=== PATIENT | female | born 1955 | race Caucasian/White ===

== ENCOUNTER 2017-10-01 | Inpatient (IN) ==
[2017-10-01] MEDS ORDERED: SALINE FLUSH 10ml SYRINGE IVF PRN (00:13)
--- NOTE | 2017-10-01 00:29 | Emergency Department Report ---
Asthma HPI - General Chief Complaint: Chest Pain Stated Complaint: chest pain, soa,dizziness Time Seen by Provider: 10/01/17 00:01 Source: patient Mode of arrival: ambulatory Limitations: no limitations - History of Present Illness HPI Narrative: Patient describes worsening exertional dyspnea for the past several months to one year. She was seen yesterday at her primary care's office, had a normal EKG , and was scheduled for a follow-up visit with cardiology next week. Patient was instructed that she had any significant worsening she should go to the ER. Tonight the patient believes she had worsening, but cannot put into words. At rest she has no symptoms, currently the patient states that she has only a mild ache in her right shoulder, has no chest pain, difficulty breathing, dyspnea, chest pressure, nausea, chills, shakes, or fevers. Patient has a history of multiple pulmonary emboli in the past, and has been well-controlled on Coumadin for the past 15 years. Last INR was 2.3, checked 2 days ago. - Related Data Home Medications Medication Instructions Recorded Confirmed Warfarin Sodium 5 mg PO DAILY #0 05/07/09 10/01/17 Omeprazole (Prilosec) 20 mg PO DAILY #0 05/08/09 10/01/17 Simvastatin [Zocor] 10 mg PO HS #0 05/08/09 10/01/17 clonazePAM [Clonazepam] 0.5 mg PO HS #0 05/08/09 10/01/17 Metformin [Glucophage] 500 mg PO BIDWM 10/01/17 10/01/17 Nortriptyline HCl 100 mg PO HS 10/01/17 10/01/17 Quetiapine Fumarate 300 mg PO HS 10/01/17 10/01/17 Allergies Allergy/AdvReac Type Severity Reaction Status Date / Time lidocaine HCl Allergy Severe SOA/ FACE Uncoded 10/01/17 01:08 NUMBNESS hydrocodone bit AdvReac Mild N/V Uncoded 10/01/17 01:08 Review of Systems All systems: reviewed and negative except as stated PFSH Patient Stated Medical History Other HEENT Yes: GLASSES Asthma Yes Pulmonary Embolism Yes Diabetes Mellitus Type 2 Yes Other GI Yes: CONSTIPATION, HEMORRHOIDS Depression Yes Pulmonary embolism Elevated cholesterol Type 2 diabetes, oral controlled - Social History Smoking status: Never smoker Substance use type: does not use Alcohol intake frequency: does not drink Physical Exam - Limitations Limitations: no limitations - General General appearance: alert, other (vital signs are all normal and stable) - Normal Exams: Head:: Normocephalic without trauma Eyes:: Pupils are PERRLA w/ EOMI, No scleral icterus, irritation, or foreign bodies noted ENMT:: No facial trauma, nasal exudates, pharyngeal erythema, or exudates are noted Neck:: Full range of motion, without adenopathy, JVD, bruits or thyromegaly Chest/Respirations:: Clear all robertson, with good airflow, and symmetry bilaterally Cardiovascular:: Regular rate and rhythm, without murmur or gallop, Pulses 2+ all extremities, capillary refill, <2 seconds all extremities Abdomen:: Bowel sounds positive, soft, non-tender, non-distended, no hepatosplenomegaly, masses or bruits noted Lymphatic:: No lymphadenopathy, or lymphedema noted Musculoskeletal:: No tenderness, or deformity noted, good range of motion, all extremities Integumentary:: No rashes, hives, or bruising noted, hair and nails, without abnormality Neurological:: Patient is alert, and oriented, cranial nerves, motor/sensory/ cerebellar, exams w/o gross deficits, to observation Psychiatric:: Patient exhibits, appropriate attention, emotion and affect Course Vital Signs Temperature 98.3 F 10/01/17 00:10 Pulse Rate 97 10/01/17 00:10 Respiratory Rate 18 10/01/17 00:10 Blood Pressure 136/67 10/01/17 00:10 Pulse Oximetry 98 10/01/17 00:10 Temperature 98.3 F 10/01/17 00:10 Pulse Rate 97 10/01/17 00:10 Respiratory Rate 18 10/01/17 00:10 Blood Pressure 136/67 10/01/17 00:10 Pulse Oximetry 98 10/01/17 00:10 Dyspnea - MDM Narrative Medical decision making narrative: EKG shows normal sinus rhythm without ischemia, ectopy, or infarction CMP is normal CBC shows profound anemia with hemoglobin of 4.0, Hemoccult - negative Patient is being admitted by Dr. Sterling Larios, will be kept nothing by mouth for possible colonoscopy in the morning, and then tonight - Lab Data Result diagrams: 10/01/17 00:21 10/01/17 00:21 Lab Results 10/01/17 10/01/17 Range/Units 00:21 00:21 WBC 10.0 (4.5-11.0) T/MM3 RBC 2.14 L (4.00-5.20) M/MM3 Hgb 4.0 L* (12-16) GM/DL Hct 15.4 L* (36-46) % MCV 72.0 L (80-100) UM3 MCH 18.7 L (26-34) UUG MCHC 26.0 L (31-37) GM/DL RDW Std Deviation 49.8 (36.9-50.2) FL Plt Count 299 (130-400) T/MM3 MPV 9.3 L (9.4-12.4) UM3 Immature Gran % (Auto) Not performed Neut % (Auto) Not performed Lymph % (Auto) Not performed Braxton % (Auto) Not performed Eos % (Auto) Not performed Baso % (Auto) Not performed Neut # (Auto) Not performed Lymph # (Auto) Not performed Braxton # (Auto) Not performed Eos # (Auto) Not performed Baso # (Auto) Not performed Abs Immat Gran (auto) Not performed Neutrophils % (Manual) 61.0 (33-66) % Lymphocytes % (Manual) 35.0 (23-45) % Monocytes % (Manual) 2.0 (0-9.0) % Eosinophils % (Manual) 1.0 (0-4) % Basophils % (Manual) 1.0 (0-2) % Neutrophils # (Manual) 6.1 (1.8-7.7) T/MM3 Lymphocytes # (Manual) 3.5 (1-4.8) T/MM3 Monocytes # (Manual) 0.2 (0-0.8) T/MM3 Eosinophils # (Manual) 0.1 (0-0.5) T/MM3 Basophils # (Manual) 0.1 (0-0.2) T/MM3 Nucleated RBCs 1 Poikilocytosis 2+ Anisocytosis 2+ Schistocytes 1+ RBC Morph Comment Abnormal Turbidity < 20 (0-20) Sodium 143 (134-144) MEQ/L Potassium 4.2 (3.6-5) MEQ/L Chloride 106 (98-107) MEQ/L Carbon Dioxide 24 (22-30) MEQ/L Anion Gap 13 (5-15) MEQ/L BUN 15.0 (7-17) MG/DL Creatinine 0.9 (0.7-1.2) mg/dL GFR Calculation 64 BUN/Creatinine Ratio 17 (6-26) RATIO Glucose 193 H (65-110) MG/DL Calculated Osmolality 281 H (261-280) MOSM/KG Calcium 8.9 (8.4-10.2) MG/DL Total Bilirubin < 0.10 L (0.20-1.30) MG/DL Conjugated Bilirubin 0.00 (0.00-0.30) mg/dL Unconjugated Bilirubin 0.00 (0.00-1.1) mg/dL Icterus Index < 2 (0-7) AST 20 (14-36) U/L ALT 22 (1-35) U/L Alkaline Phosphatase 72 (38-126) U/L Troponin I < 0.012 (0-0.12) ng/ml NT-Pro-B Natriuret Pep 80.2 (0-175) pg/mL Total Protein 7.1 (6.3-8.2) g/dL Albumin 4.0 (3.5-5.0) g/dL Globulin 3.1 (2.4-3.6) G/DL Albumin/Globulin Ratio 1.3 (1.1-2.2) RATIO Specimen Hemolysis < 15 (0-25) Disposition Clinical Impression: Anemia Qualifiers: Anemia type: unspecified type Qualified Code(s): D64.9 - Anemia, unspecified [place]: [place] [facility] [place] Condition: Stable Prescriptions: No Action Warfarin Sodium 5 mg PO DAILY #0 Simvastatin [Zocor] 10 mg PO HS #0 Metformin [Glucophage] 500 mg PO BIDWM Quetiapine Fumarate 300 mg PO HS Omeprazole (Prilosec) 20 mg PO DAILY #0 clonazePAM [Clonazepam] 0.5 mg PO HS #0 Nortriptyline HCl 100 mg PO HS Referrals: Wen Cabello MD [Family Provider] - - Seen By: physician
--- NOTE | 2017-10-01 02:48 | History & Physical Report ---
History of Present Illness Date: 10/01/17 Chief complaint: Exertional Dyspnea HPI: This is a 61 y/o w/ h/o PE on warfarin, Type 2 DM, HLD and other medical issues who presents to ED at [facility] [place] w/ chief concern of progressively worsening exertional dyspnea and dizziness(lightheadedness) w/ change in positions which started several months ago. She was seen recently by her PCP and had EKG which was "normal" and was set up to have an echocardiogram done. Patient states in last 24-48 hours exertional dyspnea has seemed worse so she came to the ER. Patient denies cp though does state that rarely she would feel some chest heaviness w/ exertion, denies SOA at rest, has some fatigue, bertha exertional, but denies f/c/s, n/v/d, melena, BRBPR and hematochezia and denies change in bladder function and denies focal neuro deficits. Patient in ER had unremarkable CXR and EKG and VSS however noted to have a Hgb of 4 but heme neg stool. Patient typed and crossed and will be admitted to the Hospitalist service for further evaluation and management. Review of Systems All systems PM: 10-point ROS was reviewed, no additional remarkable complaints except Past Medical History Patient Stated Medical History Other HEENT Yes: GLASSES Asthma Yes Pulmonary Embolism Yes Diabetes Mellitus Type 2 Yes Other GI Yes: CONSTIPATION, HEMORRHOIDS Depression Yes Diet controlled HLD Family History Updates: No specific family history updates - Social History Smoking status: Never smoker Medications Home Medications Medication Instructions Recorded Confirmed Type Warfarin Sodium 5 mg PO DAILY #0 05/07/09 10/01/17 History Omeprazole (Prilosec) 20 mg PO DAILY #0 05/08/09 10/01/17 History Simvastatin [Zocor] 10 mg PO HS #0 05/08/09 10/01/17 History clonazePAM [Clonazepam] 0.5 mg PO HS #0 05/08/09 10/01/17 History Metformin [Glucophage] 500 mg PO BIDWM 10/01/17 10/01/17 History Nortriptyline HCl 100 mg PO HS 10/01/17 10/01/17 History Quetiapine Fumarate 300 mg PO HS 10/01/17 10/01/17 History Allergies Allergy/AdvReac Type Severity Reaction Status Date / Time lidocaine HCl Allergy Severe SOA/ FACE Uncoded 10/01/17 01:08 NUMBNESS hydrocodone bit AdvReac Mild N/V Uncoded 10/01/17 01:08 Exam Vital Signs: Temperature 98.3 F 10/01/17 00:10 Pulse Rate 97 10/01/17 00:10 Respiratory Rate 18 10/01/17 00:10 Blood Pressure 136/67 10/01/17 00:10 Pulse Oximetry 98 10/01/17 00:10 Telemetry Rhythm: Sinus Rhythm Height/Weight/BMI: Height 1.6 m Weight 84.368 kg - Constitutional Present: no acute distress, well nourished, well developed - Routine HEENT Exam Head: Present: normocephalic, atraumatic Eye: Present: EOMI, PERRL ENT: Present: mucous membranes moist - Routine Neck Exam Present: supple, full ROM. Absent: JVD - Routine Respiratory Exam Present: CTA bilaterally. Absent: accessory muscle use, respiratory distress - Routine Cardiovascular Exam Present: RRR, S1, S2 - Routine Abdominal Exam Present: soft, normoactive bowel sounds, non distended, non tender - Routine Extremities Exam Absent: cyanosis, clubbing, edema - Routine Skin Exam Present: pallor - Routine Neurological Exam Present: alert, oriented X3, CN II-XII intact. Absent: sensory deficit, motor deficit - Routine Psychiatric Exam Present: normal affect, normal thought process, cooperative, good insight, good judgment Results - Labs CBC & Chem 7: 10/01/17 09:37 10/01/17 09:37 Assessment and Plan Assessment and Plan: Assessment: 1) Profound Anemia - likely acute on chronic given patient's months of progressively worsening symptoms 2) Exertional dyspnea, orthostasis (lightheaded w/ change in position - bertha bending over) and fatigue r/t #1 3) H/o PE on warfarin w/ recent INR of 2.3 4) Type 2 DM 5) Diet controlled HLD Plan: Admit to Hospitalist service NPO except sips and ice chips IVFs that of NS at 100 cc/hour PT/INR and CBC at 0800 2 units pRBCs to be transfused Consider consult to Surgery re: w/u of anemia - e.g., EGD/Colonoscopy Hold warfarin for now AC and HS accuchecks SCDs Recheck troponin x one I discussed the plan of care with the patient and her and they verbalized understanding DVT Prophylaxis: SCD's GI Prophylaxis: Protonix Resuscitation Status: Full Code - Physician Narrative Physician: Ivett Morales MD Narrative: Date: 10/01/17 Time: 1300 Dr. Larios's note reviewed. Mrs. Gonzalez interviewed and examined. CC: Fatigue/exertional dyspnea HPI: Mrs. Gonzalez is 61-year-old female on chronic warfarin therapy for past history of recurrent PE. For the past 3 months she's noted increasing exertional dyspnea, dizziness and lightheadedness with position changes, swelling in her feet, and increasing fatigue with minimal activities. She's had an aching sensation in her shoulders bilaterally with activities and pain in the lateral aspect of her left thigh. She has intermittent dyspepsia and reflux occurring primarily when she eats spicy food or late at night. This is treated with when necessary omeprazole which she takes a couple of times a week. She has chronic constipation and often strains to have bowel movements; stools are often dark but never melanotic. She denies change in stool caliber. She recalls one episode when there was a small amount of red blood in the stool. She has had no other recognized bleeding including hemoptysis, hematemesis, or hematuria. She initially attributed fatigue to elevated INRs; she was seen in the office last night and referred for cardiology evaluation. Symptoms were much worse yesterday and she subsequently presented to the emergency room where she was found have a hemoglobin of 4.0 with MCV of 72. She was subsequently hospitalized and received 2 units of blood overnight. Patient reports that she feels significantly improved this morning. Her last colonoscopy was in April 2009 at which time no abnormalities were identified. There is a family history of colon cancer affecting her mother and a brother currently has pancreatic cancer. PH/SH/FH: agree with that recorded above by Dr. Larios. Her only prior surgery was a laparoscopic hysterectomy with BSO and anterior colporrhaphy in 2011. Patient has no history of tobacco, alcohol, or illicit drug use. 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 She is a full code and her as her alternate decision maker. Dr. Cabello is her primary care physician. ROS: 10 point review as described by Dr. Larios although the patient adds that she has tinnitus chronically. EXAM: General-NAD, alert, pleasant; 98.7, 137/67, 78, 98% on room air HEENT-PERRL, EOMI without nystagmus, conjunctiva clear, sclera anicteric, conjugate gaze, facial structures symmetric, oropharynx clear, neck supple and without adenopathy Lungs-respirations nonlabored, good airflow, breath sounds clear Cardiac-regular rhythm, S1-S2 Abd-soft, nontender, without palpable mass, bowel sounds present Ext-trace edema bilateral lower extremities Skin-without generalized rash or wounds Neuro-cranial nerves 3-12 intact, motor tone normal, no tremors present, power within normal limits, sensation intact to light touch 4 extremities Psych-calm, cooperative DATA: Admission labs as above, post transfusion of 2 units hemoglobin 6.9. MCV 72 initially. INR 1.78, liver enzymes unremarkable, troponin <0.0122, proBNP 80.2 Hemoccult negative in the emergency room. Chest x-ray reviewed by myself revealing no acute disease. EKG also reviewed by myself demonstrating sinus rhythm with occasional PACs, no acute ST/T-wave changes, slow R-wave progression with low voltage anterolateral precordial leads A/P: Microcytic anemia Exertional dyspnea Fatigue Dyspepsia Constipation History PE, recurrent Diabetes mellitus-on metformin Hyperlipidemia-on simvastatin Depression/anxiety-on clonazepam, nortriptyline, and Seroquel Given slowly progressive symptoms and extent of anemia in conjunction with microcytic indices this is almost certainly a chronic blood loss anemia with GI source probable location of chronic blood loss. Dr. Nassar consulted for consideration of endoscopic studies. Chronic constipation of concern given family history colon cancer and pancreatic cancer. Hold warfarin in anticipation of EGD/colonoscopy. Discussed with Dr. Nassar, clear liquids initiated as INR precludes EGD today. IV Protonix initiated. Iron studies ordered; patient will require iron replacement therapy which may be most effectively provided IV given chronic constipation already. Posttransfusion hemoglobin 6.9; and encourage the patient to ambulate in the halls to determine symptoms at present. This may be enough blood replacement for symptomatic management short-term pending iron replacement that additional blood will not be necessary. Home medications for hyperlipidemia and depression resumed. Hospital Course Summary Disclaimer: The visit summary below is not to be considered part of the above Progress Note.
[2017-10-01] MEDS ORDERED: NS FLUSH BAG 500ml IV PRN (03:18)
[2017-10-01] MEDS ORDERED: ACETAMINOPHEN 325 MG TABLET PO PRN (03:18)
[2017-10-01 03:38] VITALS: RESP 16
[2017-10-01] MEDS ORDERED: OMEPRAZOLE 20 MG CAPSULE PO SCH (06:30)
--- NOTE | 2017-10-01 07:52 | XRay Report ---
INDICATION: dyspnea PROCEDURE: CHEST 2-VIEWS UPRIGHT (PA & LAT) Encounter: Initial COMPARISON: November 16, 2011 FINDINGS: The lungs are clear without evidence of focal abnormal airspace opacity. There is no pleural effusion or pneumothorax. The heart size, mediastinal contours and pulmonary vascularity are within normal limits. Hiatal hernia. IMPRESSION: No acute cardiopulmonary disease. .
[2017-10-01] MEDS: NS 1,000 ML IV SCH ×2 (10:38→17:01)
[2017-10-01] MEDS ORDERED: INSULIN ASPART 100unit/ml INJECTION SQ PRN (13:19)
[2017-10-01 15:12] VITALS: BP 145/71; PULSE 98; TEMP 98.4; O2SAT 97
--- NOTE | 2017-10-01 17:19 | Discharge Summary ---
Discharge Information Date of admission: 10/01/17 03:01 Anticipated date of discharge: 10/01/17 Attending Physician: Ivett Morales MD Primary care physician: Wen Cabello MD Consults: Consulting Provider: Timo Nassar Reason For Exam: anemia - Discharge Diagnosis (1) Microcytic anemia Status: Acute Microcytic anemia Exertional dyspnea Fatigue Dyspepsia Constipation History PE, recurrent Diabetes mellitus Hyperlipidemia Depression/anxiety - Laboratory Labs: Initial laboratory data revealed hemoglobin of 4.0 with MCV 72.0, platelet count 299,000, white count 10.0. 10/01/17 09:37 10/01/17 09:37 History of Present Illness HPI: Mrs. Gonzalez is 61-year-old female on chronic warfarin therapy for past history of recurrent PE. For the past 3 months she's noted increasing exertional dyspnea , dizziness and lightheadedness with position changes, swelling in her feet, and increasing fatigue with minimal activities. She's had an aching sensation in her shoulders bilaterally with activities and pain in the lateral aspect of her left thigh. She has intermittent dyspepsia and reflux occurring primarily when she eats spicy food or late at night. This is treated with when necessary omeprazole which she takes a couple of times a week. She has chronic constipation and often strains to have bowel movements; stools are often dark but never melanotic. She denies change in stool caliber. She recalls one episode when there was a small amount of red blood in the stool. She has had no other recognized bleeding including hemoptysis, hematemesis, or hematuria. She initially attributed fatigue to elevated INRs; she was seen in the office last night and referred for cardiology evaluation. Symptoms were much worse yesterday and she subsequently presented to the emergency room where she was found have a hemoglobin of 4.0 with MCV of 72. She was subsequently hospitalized and received 2 units of blood overnight. Patient reports that she feels significantly improved this morning. Her last colonoscopy was in April 2009 at which time no abnormalities were identified. There is a family history of colon cancer affecting her mother and a brother currently has pancreatic cancer. Objective Vital signs: Temperature 98.4 F 10/01/17 15:12 Pulse Rate 98 10/01/17 15:12 Respiratory Rate 16 10/01/17 15:12 Blood Pressure 145/71 H 10/01/17 15:12 Pulse Oximetry 97 10/01/17 15:12 Height/Weight/BMI: Height 1.68 m Weight 84.3 kg Body Mass Index 30.0 Hospital Course This is a general summary of the patient's hospital course. For more details refer to the complete medical record. Hospital course: Mrs. Chaudhari presents with slowly progressive symptoms and profound anemia in conjunction with microcytic indices compatible with chronic blood loss anemia with GI blood loss as probable source. Dr. Nassar was consulted for consideration of endoscopic studies. Hold warfarin in anticipation of EGD/ colonoscopy. The patient was on IV Protonix while hospitalized and converted to daily omeprazole at discharge (previously taking when necessary). She was seen by Dr. Nassar but INR of 1.78 preclude doing an EGD on 10/01 and subsequently EGD and colonoscopy have been scheduled for 10/04 as an outpatient. The patient received 2 units of packed red blood cells during the hospitalization with posttransfusion hemoglobin improved to 6.9. She was able to ambulate without difficulty and reports feeling remarkably better hence it was not felt that additional transfusions are needed at this time. Iron studies were ordered but will not be back until 10/04 as well. Patient will require iron replacement therapy which may be most effectively provided IV given chronic constipation. This can be coordinated through the infusion center when data is available. The patient was advised that anemia will worsen and symptoms will return over the next 1-2 months without further therapy. Stable for discharge posttransfusion. Resuscitation Status: Full Code Discharge Plan - Discharge Disposition Discharge Date: 10/01/17 Disposition: Discharged Home, Self-Care *Condition: Stable Reason For Visit (Visit label in EMR): Profound anemia-symptomatic - Discharge Medications *Discharge Medications: New Peg 3350 238 G Bottle [Miralax] 17 gm PO BID #1 bottle Continue Simvastatin [Zocor] 10 mg PO HS #0 Metformin [Glucophage] 500 mg PO BIDWM Quetiapine Fumarate 300 mg PO HS Omeprazole (Prilosec) 20 mg PO DAILY #0 clonazePAM [Clonazepam] 0.5 mg PO HS #0 Nortriptyline HCl 100 mg PO HS Discontinued Warfarin Sodium 5 mg PO DAILY #0 - Discharge Packet/Instructions *Diet: Liquids and as instructed by Dr. Nassar *Activity: As tolerate *Pain Management/Treatment: Tylenol as needed *Wound Care: Not applicable Additional Instructions: -Hold Warfarin until testing completed on Wednesday. - Start taking MiraLAX 17 g (1 scoop) twice a day to minimize constipation. - Bowel prep recommendations for colonoscopy per Dr. Nassar. -Follow up with Dr. Cabello next week regarding need for iron and possibility of outpatient IV iron infusion *Expected Signs/Symptoms: Shortness of breath and fatigue with significant activity. *Notify Physician if: You become aware of any bleeding or if you have chest pain *During Business Hours Contact: Dr. Cabello's office *After Business Hours Contact: Call [facility] at [phone] and ask that the on-call physician be paged *Pending Lab/Results: Follow up w/Provider (iron studies) - Referrals/Follow Up *Referrals/Follow Up: Wen Cabello MD [Family Provider] - 1 Week (October 08 at 10:45 a.m.) Timo Nassar MD [Physician] - (Wednesday for endoscopic studies as discussed ) - Patient Handouts Patient Handouts: Iron Rich Diet (DC), Iron Deficiency Anemia (DC), Blood Transfusion (GEN) - Dismissal Complete Discharge Instructions are:: Complete Physician Narrative - Narrative Attestation Narrative: Date: 10/01/17 Time: 4620
[2017-10-01] MEDS ORDERED: PANTOPRAZOLE 40 MG INJECTION IVP SCH (21:00)
[2017-10-01] MEDS ORDERED: NORTRIPTYLINE 25 MG CAPSULE PO SCH (21:00)
[2017-10-01] MEDS ORDERED: SIMVASTATIN 10 MG TABLET PO SCH (21:00)
[2017-10-01] MEDS ORDERED: QUETIAPINE 100 MG TABLET PO SCH (21:00)
[2017-10-01] MEDS ORDERED: ClonazePAM 0.5 MG TABLET PO SCH (21:00)
--- NOTE | 2017-10-02 10:50 | Consultation ---
DATE OF CONSULTATION 10/01/2017 CONSULTING PHYSICIAN Timo Nassar MD REQUESTING PHYSICIAN Dr. Ivett Morales REASON FOR CONSULTATION Consider endoscopies. IMPRESSION 1. Severe anemia - microcytic, likely iron deficiency (labs pending). 2. Coumadin anticoagulation - currently therapeutic. RECOMMENDATIONS 1. Given the microcytic anemia which is unexplained, I do think that the upper and lower endoscopy should be performed to try to identify any potential GI sources for chronic blood loss. 2. She will need to be off of her Coumadin with an INR of less than 1.5 to have her procedure. 3. I do think it would be reasonable to dismiss her from the hospital and have endoscopies performed on Wednesday as an outpatient procedure once her Coumadin has been held. HISTORY OF PRESENT ILLNESS Cary was having trouble lately and felt like she could not go up or down stairs without developing dyspnea with exertion. She also had dizziness when she was bending over. She had seen Dr. Wen Cabello and had been set up for a cardiology visit next week after her EKG had been of normal. Her symptoms worsened enough that she decided she would go to the emergency department. She was found to have a hemoglobin of 4.0 and had a negative Hemoccult test. The patient was admitted to the hospital and had 2 units of blood transfused overnight. Her hemoglobin is now 6.9 after the transfusion and she feels much better symptomatically. Her anemia was microcytic and she has iron studies pending. The patient denies any significant abdominal pain but does report intermittent reflux. She uses omeprazole on an as-needed basis and typically takes it after eating spicy food or if she eats late at night. She did notice one bowel movement with bright red blood after her stool. This episode of rectal bleeding was within the last two weeks but she has not had any since. She does have chronic constipation that she believes is related to medications. She is on Coumadin for a history of DVT and a recurrent DVT one week after stopping her Coumadin. Her current INR is 1.78. PAST MEDICAL HISTORY 1. 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 2. Type 2 diabetes mellitus on oral agents. 3. Gastroesophageal reflux disease. 4. Constipation. 5. Anxiety. 6. Depression. 7. Hyperlipidemia - diet controlled. 8. Childhood asthma. PAST SURGICAL HISTORY 1. Laparoscopic hysterectomy with bilateral salpingo-oophorectomy and anterior colporrhaphy - 2011. 2. Colonoscopy - 04/2009 - no abnormalities were identified. ALLERGIES Lidocaine, hydrocodone. MEDICATIONS The patient's home medications were reviewed. See the admission medical reconciliation. She does usually take warfarin. SOCIAL HISTORY The patient is and has four children and 17 grandchildren. She is a never-smoker and denies alcohol or illicit drug use. FAMILY HISTORY 1. Mother - colon cancer. 2. Father - heart disease. 3. Brother one - pancreatic cancer. 4. Brother two () - Parkinson's. 5. Sister - Parkinson's. REVIEW OF SYSTEMS Ten-point review of systems was negative except for History of Present Illness and the following. GENERAL: The patient has had chills. RESPIRATORY: Dyspnea on exertion. CARDIAC: The patient had reported chest aching and tightness in her shoulders and arms but has had negative EKGs. NEUROLOGIC: The patient reports numbness of her toes. PSYCHIATRIC: Anxiety and depression. ENDOCRINE: She is a diabetic on oral agents. HEMATOLOGIC: She is on warfarin. PHYSICAL EXAMINATION VITAL SIGNS: Temperature 98.4, pulse 98, blood pressure 145/71, respiratory rate 16, oxygen saturation 97% on room air. GENERAL: The patient is awake and alert, in no acute distress. HEENT: Sclerae clear. Extraocular muscles intact. NECK: Supple with a midline trachea. No lymphadenopathy or thyromegaly are noted. HEART: Regular rate and rhythm. LUNGS: Clear to auscultation bilaterally. ABDOMEN: Soft, nontender, nondistended. EXTREMITIES: No clubbing, cyanosis or edema. Cranial nerves II-XII are grossly intact. PSYCHIATRIC: Normal mood and affect. LABORATORY DATA See History of Present Illness. PATIENT EDUCATION The details, risks, and benefits of endoscopy were discussed with the patient, her , and her daughter. The discussion included but was not limited to bleeding, higher than normal bleeding risk with warfarin, perforation requiring surgical repair, complications of anesthesia, pneumonia, or possibility of inability to fully remove a discovered lesion. Following discussion of the procedure she did wish to proceed with EGD and colonoscopy. She was given bowel prep instructions to follow on Wednesday in anticipation of a procedure on Wednesday as an outpatient. [facility]
== END 2017-10-01 17:20 | disposition home or self-care (01) | DRG 812 ==
LOC: ED → MED 03:01
PROVIDERS: ADMIT Internal Medicine; ATTEND Internal Medicine